=== PATIENT | female | born 1985 | race Caucasian/White ===

== ENCOUNTER → 2017-12-12 | Outpatient (CLI) | payer OTHER ==
[2017-12-12 12:09] LABS: T4, Free (Free Thyroxine) 1.01 ng/dL (0.78-2.19)
--- NOTE | 2017-12-12 14:56 | US ---
EXAMINATION TYPE: US pelvic complete DATE OF EXAM: 12/12/2017 COMPARISON: NONE CLINICAL HISTORY: N83.20 Ovarian cyst. Patient stated had US 6 to7 months ago at [facility] for ovarian cyst and does not recall which side pelvic pain occurred; ; hysterectomy 4 years ago ; patient denies pelvic pain today TECHNIQUE: Transabdominal (TA). Transabdominal sonographic images of the pelvis were acquired. Date of LMP: 4 years ago EXAM MEASUREMENTS: Uterus: surgically removed Endometrial Stripe: surgically removed Right Ovary: 3.8 x 2.9 x 2.2 cm Left Ovary: not seen after multiple views Patient deferred TV US to assess for left ovary. 1. Right Ovary: multiple follicles with largest seen as involuting complex cyst with peripheral ring of color flow = 1.9 x 2.0 x 1.7cm 2. Left Ovary: not seen Spectral, color and waveform doppler imaging shows good arterial and venous flow within right ovary ; there is no evidence for ovarian torsion. 3. Bilateral Adnexa: wnl 4. Posterior cul-de-sac: wnl IMPRESSION: 1. Involuting cyst likely on the right ovary. Additional follicles are present. 2. Left ovary not visualized. 3. Follow-up exam in 6 weeks is recommended.
== END | disposition home or self-care (01) ==
LOC: RADUSWWP 10:46
PROVIDERS: ATTEND Obstetrics & Gynecology
DX: N83.209 Unspecified ovarian cyst, unspecified side (principal); R53.83 Other fatigue
CPT/HCPCS: 36415; 76856; 83001; 83002; 84144; 84146; 84439; 84443

== ENCOUNTER 2021-03-19 13:53 | Emergency (ER) | payer OTHER ==
[2021-03-19] MEDS ORDERED: SODIUM CHLORIDE 0.9% 1,000 ML IV STA (14:46)
[2021-03-19] MEDS ORDERED: ACETAMINOPHEN TAB 500 MG TAB PO STA (14:47)
[2021-03-19] MEDS ORDERED: CASIRIVIMAB/IMDEVIMAB (EUA) 1,200 MG in SODIUM CHLORIDE 0.9% 100 ML IVPB ONE (15:00)
[2021-03-19] MEDS ORDERED: SODIUM CHLORIDE 0.9% 50 ML IVPB ONE (15:00)
--- NOTE | 2021-03-19 15:29 | ED ---
General Adult HPI - General Chief complaint: Upper Respiratory Infection Stated complaint: weakness Time Seen by Provider: 03/19/21 14:27 Source: patient Mode of arrival: ambulatory Limitations: no limitations - History of Present Illness Initial comments: 35-year-old female presenting to the emergency department with a chief complaint of a fever and weakness. Patient reports about 6 days ago she began to feel generalized fatigue and weakness. 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 Patient reports she's had fevers and chills but not taking antipyretics. Denies any nausea, vomiting, diarrhea or abdominal pain and chest pain and shortness of breath. Denies any cough or URI-like symptoms. Denies loss of taste or smell. Nonvaccinated for covert. - Related Data Home Medications Medication Instructions Recorded Confirmed Ibuprofen [Motrin] 200 mg PO Q6HR PRN 03/09/15 03/15/15 Previous Rx's Medication Instructions Recorded Acetaminophen-Codeine 300-30mg 1 tab PO Q4H PRN #30 tablet 03/16/15 [Tylenol #3] Simethicone [Gas-X] 125 mg PO TID PRN #30 capsule 03/16/15 Allergies Allergy/AdvReac Type Severity Reaction Status Date / Time No Known Allergies Allergy Verified 03/19/21 13:56 Review of Systems ROS Statement: Those systems with pertinent positive or pertinent negative responses have been documented in the HPI. ROS Other: All systems not noted in ROS Statement are negative. Past Medical History Past Medical History: No Reported History Additional Past Medical History / Comment(s): Obstetric history: She has had 4 previous vaginal deliveries. This is her fifth and she has had care with Dr Castro since 17 weeks. A+, abs neg, Rub nonimmune, Hep B neg, RPR NR. GBS neg. Declined quad. Normal anatomy US at 19 weeks. History of Any Multi-Drug Resistant Organisms: None Reported Past Surgical History: No Surgical Hx Reported Additional Past Surgical History / Comment(s): LEEP COLPOSCOPY Past Anesthesia/Blood Transfusion Reactions: No Reported Reaction Past Psychological History: No Psychological Hx Reported Smoking Status: Former smoker Past Alcohol Use History: None Reported Past Drug Use History: None Reported - Past Family History Mother Family Medical History: Cancer Additional Family Medical History / Comment(s): breast General Exam Limitations: no limitations General appearance: alert, in no apparent distress Head exam: Present: atraumatic, normocephalic, normal inspection Eye exam: Present: normal appearance, PERRL, EOMI Pupils: Present: normal accommodation ENT exam: Present: normal exam, normal oropharynx, mucous membranes dry, TM's normal bilaterally, normal external ear exam Neck exam: Present: normal inspection, full ROM. Absent: tenderness, lymphadenopathy Respiratory exam: Present: normal lung sounds bilaterally. Absent: respiratory distress Cardiovascular Exam: Present: regular rate, normal rhythm, normal heart sounds. Absent: systolic murmur, diastolic murmur, rubs GI/Abdominal exam: Present: soft. Absent: distended, tenderness, guarding, rebound Extremities exam: Present: normal inspection, full ROM, normal capillary refill. Absent: tenderness, pedal edema, joint swelling Back exam: Present: normal inspection, full ROM. Absent: tenderness Neurological exam: Present: alert, oriented X3 Psychiatric exam: Present: normal affect, normal mood Skin exam: Present: warm, dry, intact, normal color Course Vital Signs 03/19/21 13:56 Temperature 100.1 F H Pulse Rate 80 Respiratory 20 Rate Blood Pressure 96/60 O2 Sat by Pulse 97 Oximetry Medical Decision Making - Medical Decision Making 35-year-old female presenting to the emergency department with a chief complaint of a fever and weakness. On physical examination, patient is well-appearing. Lungs are clear to auscultation. She does have mild dry mucous members. Patient will be given 1 L IV bolus fluids. No chest pain or shortness of breath. Borderline fever. She was given Tylenol. Patient will be given a monoclonal antibody. Patient was observed in the emergency department. covid protocol as discussed. She will be discharged case discussed with physician. - Lab Data Lab Results 03/19/21 Range/Units 13:59 Coronavirus (PCR) Detected A (Not Detectd) Disposition Clinical Impression: COVID Disposition: HOME SELF-CARE Condition: Stable Instructions (If sedation given, give patient instructions): Coronavirus Disease 2019 (COVID-19) Additional Instructions: Please return to the Emergency Department if symptoms worsen or any other concerns. Is patient prescribed a controlled substance at d/c from ED?: No Referrals: Shelton Chung MD [Primary Care Provider] - 1-2 days Time of Disposition: 15:32
[2021-03-19 15:32] VITALS: RESP 18
[2021-03-19] MEDS ORDERED: KETOROLAC 15 MG/ML 1 ML VIAL IVP STA (16:19)
[2021-03-19 17:14] VITALS: BP 98/59; PULSE 66; TEMP 97.8
== END 2021-03-19 17:12 | disposition home or self-care (01) ==
LOC: EC 13:53
DX: U07.1 COVID-19 (principal); Z79.1 Long term (current) use of non-steroidal anti-inflammatories (NSAID); Z87.891 Personal history of nicotine dependence
CPT/HCPCS: 87635; 96365; 96375; 96361; 99285; J1885; Q0243

== ENCOUNTER → 2024-01-24 | Outpatient (CLI) | payer OTHER ==
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
== END | disposition home or self-care (01) ==
LOC: RADMRIMAIN 11:39
PROVIDERS: ATTEND Family Medicine
DX: M75.91 Shoulder lesion, unspecified, right shoulder (principal); M67.813 Other specified disorders of tendon, right shoulder; M19.011 Primary osteoarthritis, right shoulder

== ENCOUNTER → 2024-03-02 | Outpatient (CLI) | payer OTHER ==
--- NOTE | 2024-03-02 09:12 | MR ---
EXAMINATION TYPE: MR thoracic spine wo con DATE OF EXAM: 03/02/2024 COMPARISON: X-ray 01/02/2024 HISTORY: Back pain Standard multiplanar, multisequence MRI departmental protocol Multiplanar, multisequence images of the thoracic spine were acquired FINDINGS: There is mild loss of disc signal T7-T8 degenerative disc disease. Remaining levels demonstrate maint enance of disc signal space. There are no compression deformities or evidence of marrow edema. Neural foramina patent all levels. No disc herniation or canal stenosis. No abnormal signal within the visualized spinal cord. Mild heterogeneity of the thyroid could be associated with thyroiditis. Aorta of normal caliber. No a bnormal signal in the paraspinal soft tissues. Mild thickening of the left adrenal gland too small to characterize, but likely on the basis of benig n adenoma or hyperplasia. IMPRESSION: Mild degenerative disc disease T7-T8 with no disc herniation or canal stenosis.
== END | disposition home or self-care (01) ==
LOC: RADMRIMAIN 07:03
PROVIDERS: ATTEND Orthopaedic Surgery
DX: M51.34 Other intervertebral disc degeneration, thoracic region (principal)
CPT/HCPCS: 72146

== ENCOUNTER → 2024-04-06 | Outpatient (CLI) | payer OTHER ==
[2024-04-06 13:24] VITALS: BP 113/74; PULSE 63; RESP 16; TEMP 97.1
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
== END | disposition home or self-care (01) ==
LOC: PNWHC3 12:41
PROVIDERS: ATTEND Specialist
DX: M54.6 Pain in thoracic spine
CPT/HCPCS: 99211

== ENCOUNTER 2024-04-21 12:54 | Day surgery (SDC) | payer OTHER ==
[2024-04-21 13:57] VITALS: TEMP 97.2
[2024-04-21] MEDS: LACTATED RINGERS 1,000 ML IV SCH (14:00)
[2024-04-21] MEDS: IV FLUID CONTINUATION 1,000 ML IV ONE (14:00)
[2024-04-21] MEDS ORDERED: MIDAZOLAM 2 MG/2 ML VIAL ONE (14:48)
[2024-04-21] MEDS ORDERED: fentaNYL (PF) 50 MCG/ML 2 ML AMP ONE (14:48)
[2024-04-21] MEDS ORDERED: ROPIVACAINE 5MG/ML 20ML VIAL ONE (14:48)
--- NOTE | 2024-04-21 15:01 | P.PCN ---
Date of Procedure: 04/21/24 Procedure(s) Performed: PREOPERATIVE DIAGNOSIS : 1- Thoracic spondylosis with Facet Arthropathy wit hout myelopathy . POSTOPERATIVE DIAGNOSIS: 1- Thoracic spondylosis with Facet Arthropathy without myelopathy . PROCEDURE: Diagnostic bilateral T7, T8 medial branch block under fluoroscopy guidance(fluoroscopy images available in the radiology Department ) ( To target the facet joint between Bilateral T7-8 ) ANESTHESIA: moderate sedation with intravenous Versed 3 mg and Fentanyl 100 mcg. ( sedations started at 14:48 , ended at 14:58 ) EBL: Minimal COMPLICATION: None PROCEDURE INDICATION: Chronic low back pain secondary to Facet arthropathy un responsive to conservative treatment. PROCEDURE DESCRIPTION: the patient was seen and identified in the preop holding area , risks and benefits and possible complications of the procedure and alte rnative were discussed with the patient, and the patient agreed to proceed with the procedure and signed the consent and vital signs monitored during the procedure and fluoroscopy was used to maximize the benefit and accuracy of the needle placement, and sedation was given to decrease patient anxiety, patient was taken to the procedure room and placed in prone position vital signs monitored in the back prepped with chlorhexidine X3 then under strict sterile technique using a right oblique fluoroscopy ,the junction of the transverse process and the superior articulating process of the right T7 ,T8 vertebra which corresponding to the fluoroscopy image of the eye of the Reji dog on the block side for the medial branches and subsequently , after local infiltration of skin and subcu tissuies with Ropivacaine 0.5 % , one mL at each level ,then 22-gauge Quincke-type needles , 2 needle was used , each one of them placed at the junction of the base of the transverse process and the superior articular process at the appropriate level, and the needle was advanced until the periosteum contacted, needle placement confirmed with AP oblique and lateral view and after appropriate needle placement confirmed, and after negative aspiration for heme and CSF and there was no paresthesia 1 mL of Ropivacaine 0.5% , then half mL injected at each level after negative aspiration the needle subsequently removed and the same procedure repeated for the left side at left side at T7, T8 levels. At the end of the procedure and the needles removed and a bandage applied after the skin was cleaned the cleaning solution patient taken to recovery room in stable condition and monitors in the recovery room for 20-30 minutes and discharged home in stable condition after discharge criteria met and patient will follow up with the pain clinic in 2-4 weeks
[2024-04-21] MEDS: IV FLUID CONTINUATION 500 ML IV ONE (15:07)
--- NOTE | 2024-04-21 15:14 | FL ---
EXAMINATION TYPE: FL guided pain mgmt statistic DATE OF EXAM: 04/21/2024 HISTORY: Fluoroscopy time Total dose area product (DAP) in uGy*m?, mGy*cm? (or similar): 0.60072 IMPRESSION: 1. Fluoroscopy time. [facility], , 04/21/2024 3:12 PM
[2024-04-21 15:26] VITALS: BP 100/59; PULSE 72; RESP 18
== END 2024-04-21 15:48 | disposition home or self-care (01) ==
LOC: ORPAIN 12:54
PROVIDERS: ATTEND Specialist
DX: M47.814 Spondylosis without myelopathy or radiculopathy, thoracic region (principal)
CPT/HCPCS: 99152

== ENCOUNTER → 2024-05-07 | Outpatient (CLI) | payer OTHER ==
[2024-05-07 13:35] VITALS: BP 99/65; PULSE 77; RESP 16
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
== END ==
LOC: PNWHC3 12:59
PROVIDERS: ATTEND Specialist
DX: M47.24 Other spondylosis with radiculopathy, thoracic region (principal); F17.200 Nicotine dependence, unspecified, uncomplicated
CPT/HCPCS: 99211

== ENCOUNTER 2024-05-14 08:59 | Day surgery (SDC) | payer OTHER ==
[2024-05-14] MEDS: IV FLUID CONTINUATION 1,000 ML IV ONE ×2 (09:18→09:56)
[2024-05-14] MEDS: LACTATED RINGERS 1,000 ML IV SCH (09:21)
[2024-05-14 09:23] VITALS: TEMP 98
[2024-05-14] MEDS ORDERED: ROPIVACAINE 5MG/ML 20ML VIAL ONE (09:36)
[2024-05-14] MEDS ORDERED: fentaNYL (PF) 50 MCG/ML 2 ML AMP ONE (09:36)
[2024-05-14] MEDS ORDERED: MIDAZOLAM 2 MG/2 ML VIAL ONE (09:36)
--- NOTE | 2024-05-14 10:01 | FL ---
EXAMINATION TYPE: FL guided pain mgmt statistic DATE OF EXAM: 05/14/2024 HISTORY: Fluoroscopy time Total dose area product (DAP) in uGy*m?, mGy*cm? (or similar): 0.40241 IMPRESSION: 1. Fluoroscopy time. [facility], , 05/14/2024 9:59 AM
--- NOTE | 2024-05-14 10:09 | P.PCN ---
Description of Procedure: T10-11. Preprocedure diagnosis. 1. Thoracic spondylosis with facet joint arthropathy without myelopathy. 2. Thoracic degenerative disc disease. Postprocedure diagnosis. 1. Thoracic spondylosis with facet joint arthropathy without myelopathy. Space 2. Thoracic degenerative disc disease. Procedure.Bilateral T6, T7 medial branch diagnostic block with local anesthetics, with fluoroscopic guidance (fluoroscopy images are available in the radiology department) (to Denervate the facet joint at the T7-8 levels) Anesthesia. Moderate sedation with intravenous Versed 2 mg and fentanyl 100 g and local infiltration with ropivacaine 0.5%. Continuous verbal communication was maintained with patient. EBL minimal. Procedure indication. The patient with back pain secondary to thoracic facet arthropathy .The patient was seen and identified in the preoperative area. Risks, Benefits, complications, including but not limited to risk of infection, bleeding, ALLERGIC reaction to the medications and no complete pain relief and alternatives were discussed with the patient, the patient admitted to proceed with the procedure and signed the consent. Procedure description/technique. Patient was taken to the OR and timeout was completed. The patient was placed in prone position on the procedure table. The thoracic area was prepped and draped in the usual sterile fashion. After injecting 5 ml of 1% Lidocaine subcutaneously 22-gauge spinal needle was advanced under fluoroscopic guidance. Needle was progressed with trajectory view which is AP view. The needle is placed parallel to and advanced within the fluoroscopy beam to the superior lateral edge of the transverse process until the needle tip contacts the periosteum. With this approach, the needle tip is posterior to the superior lateral edge of the transverse process over which the targeted medial branch nerve passes. The importance of keeping the needle in line with the superior lateral edge of the transverse process has to do with avoiding the lung that is anterior to the transverse process. On the right side to target T6 medial branch, the needle was placed in the superior lateral part of T7 transverse process, to target T7 medial branch, the needle was placed in the superior lateral border of T8 transverse process. At each point 0.5 mL of 0.5% ropivacaine was injected. This same procedure was repeated on the LEFT side to target medial branch of T6, T7 using 0.5 mL of 0.5% ropivacaine at each point At the end of the procedure the skin was cleansed and Band-Aids were applied. Disposition patient tolerated the procedure well. No complication. She was placed in supine position and transferred to the recovery area in stable conditi on for observation and was discharged home from recovery room after meeting discharge criteria. Discharge instructions given to the patient by the staff. The patient were examined prior to discharge the patient will schedule a follow- up in the clinic in 2-4 weeks.
[2024-05-14 10:29] VITALS: BP 101/62; PULSE 60; RESP 17
== END 2024-05-14 10:36 | disposition home or self-care (01) ==
LOC: ORPAIN 08:59
PROVIDERS: ATTEND Pain Medicine Interventional Pain Medicine
DX: M47.814 Spondylosis without myelopathy or radiculopathy, thoracic region (principal); M51.34 Other intervertebral disc degeneration, thoracic region
CPT/HCPCS: 99152

== ENCOUNTER → 2024-05-28 | Outpatient (CLI) | payer OTHER ==
[2024-05-28 12:53] VITALS: BP 99/56; PULSE 74; RESP 16
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
== END ==
LOC: PNWHC3 12:39
PROVIDERS: ATTEND Specialist
DX: M47.24 Other spondylosis with radiculopathy, thoracic region (principal); F17.200 Nicotine dependence, unspecified, uncomplicated
CPT/HCPCS: 99211

== ENCOUNTER → 2024-06-12 | Day surgery (SDC) | payer OTHER ==
[~2024-06-12] MED LIST: MIDAZOLAM 2 MG/2 ML VIAL ONE; ROPIVACAINE 5MG/ML 20ML VIAL ONE; fentaNYL (PF) 50 MCG/ML 2 ML AMP ONE; methylPREDNISolone ACETATE 40 MG/ML 1 ML VIAL ONE
[2024-06-12 11:54] VITALS: RESP 16; TEMP 98
[2024-06-12] MEDS: LACTATED RINGERS 1,000 ML IV SCH (11:54)
[2024-06-12] MEDS: IV FLUID CONTINUATION 1,000 ML IV ONE (12:46)
--- NOTE | 2024-06-12 12:46 | P.PCN ---
Date of Procedure: 06/12/24 Procedure(s) Performed: PREOPERATIVE DIAGNOSIS: 1-thoracic spondylosis with Facet Arthropathy without myelopathy. POSTOPERATIVE DIAGNOSIS: 1-thoracic spondylosis with Facet Arthropathy without myelopathy. PROCEDURES : Bilateral Radiofrequency thermocoagulation,T7, T8 medial branch, with fluoroscopic guidance (fluoro images in the radiology department) ( to denervate the facet joint at bilateral T7-8 levels ). ANESTHESIA: Moderate sedation with intravenous versed 4 mg and fentaneyl 100 mcg . (Sedation started at 12:15, ended at 12:39 ) EBL: Minimal PROCEDURE INDICATION: The patient with mid back pain secondary to Thoracic facet arthropathy who had more than 50% relief of her pain with previous diagnostic Thoracic medial branch block with Ropivacaine. PROCEDURE DESCRIPTION / TECHNIQUE: The patient was seen and identified in the preoperative area. Risks, benefits, complications, including but not limited to risk of infection ,bleeding , allergic reactions to the medications and no complete pain releife , and alternatives were discussed with the patient, the patient agreed to proceed with the procedure and signed the consent. IV was started. Vital signs remained stable throughout the procedure. Patient was taken to the OR and time out was completed. The patient was placed in the prone position on the procedure table. The Thoracic area was prepped and draped in the usual sterile fashion. . Vital signs were closely monitored during the procedure .IV sedation was used during the procedure to decrease patients anxiety. Using AP and then oblique fluoroscopy, the ``eye of the Reji dog corresponding to the connection between the superior and transverse articular processes of right T7 ,T8 were identified, marked, and localized with 1% lidocaine. Subsequently, a 20 [id number] radiofrequency cannula with a 10-mm active tip was advanced guided by fluoroscopy to each of the``eyes of the Reji dog at right T7, T8. Each site then underwent sensory testing at 50 Hz and 0 to 1 volt and motor testing at 2.5 Hz and 0 to 3 volt with local stimulation, but no radicular symptoms down the legs. Thereafter each sites underwent radiofrequency thermocoagulation at 80 degrees celsius for 90 seconds after injecting 0.5 ml of PF Ropivacaine 1ml, then after the thermocoagulation done , 1 ml of the block solution containing Depo-Medrol 20 mg and 3 ml of Ropivacaine 0.5% was injected at the right T7 ,T8 , levels after negative aspiration of CSF and blood and with no paresthesias. Cannulas were retracted while injecting lidocaine 1% until the needle is out. The same procedure was repeated at the level of Left T7 ,T8 levels. At the end of the procedure, the skin was cleansed and bandages were applied. COMPLICATIONS: No acute complications. DISPOSITION / PLANS: The patient was placed in a supine position and transferred to the recovery area in a stable condition for observation and was discharged from the recovery room after meeting discharge criteria. Home discharge instructions given to the patient by the staff. The patient was reexamined prior to discharge. The patient will schedule a follow up in the clinic in 2-4 weeks.
[2024-06-12 13:07] VITALS: BP 98/66; PULSE 65
--- NOTE | 2024-06-12 13:12 | FL ---
EXAMINATION TYPE: FL guided pain mgmt statistic DATE OF EXAM: 06/12/2024 12:45 PM COMPARISON: Pre Operative Images if available both CT/MRI or plain film CLINICAL INDICATION: Female, 38 years old with history of RF FREQ THORACIC; TECHNIQUE: FL guided pain mgmt statistic, multiple fluoroscopic images provided for procedure. Total fluoroscopy time: 28.0 seconds Total submitted images to PACS: 8 DAP: [id number] mGym2 Gycm2 uGym2 cGycm2 or equivalent. FINDINGS: IMPRESSION: 1. No evidence for intraoperative complication. 2. Please see the operative/procedural note for further details. [facility], , 06/12/2024 1:09 PM
== END ==
LOC: ORPAIN 10:27
PROVIDERS: ATTEND Specialist
DX: M47.814 Spondylosis without myelopathy or radiculopathy, thoracic region (principal)
CPT/HCPCS: 99152; 99153

== ENCOUNTER → 2024-07-15 | Outpatient (CLI) | payer OTHER ==
[2024-07-15 13:02] VITALS: BP 115/77; PULSE 75; RESP 19; TEMP 98
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
== END ==
LOC: PNWHC3 12:45
PROVIDERS: ATTEND Specialist
DX: M54.15 Radiculopathy, thoracolumbar region (principal); G89.29 Other chronic pain; F17.200 Nicotine dependence, unspecified, uncomplicated
CPT/HCPCS: 99211

== ENCOUNTER → 2024-07-15 | Outpatient (CLI) | payer OTHER ==
--- NOTE | 2024-07-15 15:10 | XR ---
EXAMINATION TYPE: XR lumbar spine 3V DATE OF EXAM: 07/15/2024 2:00 PM COMPARISON: None CLINICAL INDICATION: Female, 38 years old with history of M54.16 RADICULOPATHY, LUMBAR REGION, , FINDINGS: Leftward truncal shift. Facet arthropathy lower lumbar spine. Vertebral body heights are preserved as are disc interspaces and alignment is maintained. IMPRESSION: No vertebral compression collapse or malalignment. Slight leftward truncal shift which may be positio nal or due to muscle spasm. [facility], Workstation: [facility], 07/15/2024 3:08 PM
== END | disposition home or self-care (01) ==
LOC: LABWHC1 13:35
PROVIDERS: ATTEND Specialist
DX: M54.16 Radiculopathy, lumbar region (principal)
CPT/HCPCS: 72100

== ENCOUNTER → 2024-07-27 | Outpatient (CLI) | payer OTHER ==
--- NOTE | 2024-07-27 21:48 | MR ---
INDICATION: Patient age:Female; 38 years old; Reason for study: M54.16; [facility]. COMPARISONS: Lumbar spine radiograph 07/27/2024, MR thoracic spine 03/02/2024. TECHNIQUE: Multi planar, multi sequence imaging was performed utilizing: T1-weighted, T2-weighted, a nd turbo inversion recovery imaging of the lumbar spine. The patient was not given contrast. FINDINGS: The lumbar vertebral bodies do have preserved heights and alignment. No significant disc desiccation is present. The conus medullaris and the distal spinal cord do appear unremarkable with regards to their signal intensity and morphology. L1-L2: No significant disc pathology is identified. The spinal canal and neural foramen are patent. L2-L3: No significant disc pathology is identified. The spinal canal and neural foramen are patent. L3-L4: No significant disc pathology is identified. The spinal canal and neural foramen are patent. L4-L5: No significant disc pathology is identified. The spinal canal and neural foramen are patent L5-S1: No significant disc pathology is identified. The spinal canal and neural foramen are patent. Bilateral facet arthropathy with right-sided facet joint increased STIR signal. There is associated 7 mm synovial cyst posteriorly along the facet joint. Other significant findings: None. IMPRESSION: 1. No definitive evidence for disc herniation or significant spinal canal stenosis. 2. L5-S1 right facet joint arthropathy with surrounding edema and subcentimeter synovial cyst. [facility], , 07/27/2024 9:46 PM
== END | disposition home or self-care (01) ==
LOC: RADMRIMAIN 20:45
PROVIDERS: ATTEND Specialist
DX: M47.27 Other spondylosis with radiculopathy, lumbosacral region (principal); M71.38 Other bursal cyst, other site; R60.9 Edema, unspecified
CPT/HCPCS: 72148

== ENCOUNTER → 2024-08-03 | Outpatient (CLI) | payer OTHER ==
[2024-08-03 10:21] VITALS: PULSE 71; RESP 16; TEMP 97.9
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
== END ==
LOC: PNWHC3 07:54
PROVIDERS: ATTEND Specialist
DX: M54.14 Radiculopathy, thoracic region (principal); M47.817 Spondylosis without myelopathy or radiculopathy, lumbosacral region; F17.210 Nicotine dependence, cigarettes, uncomplicated
CPT/HCPCS: 99212

== ENCOUNTER → 2024-09-28 | Outpatient (CLI) | payer OTHER ==
[2024-09-28 08:54] VITALS: BP 104/66; PULSE 74; RESP 15; TEMP 98.3
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
== END ==
LOC: PNWHC3 08:03
PROVIDERS: ATTEND Specialist
DX: M47.817 Spondylosis without myelopathy or radiculopathy, lumbosacral region (principal); M54.14 Radiculopathy, thoracic region; G89.4 Chronic pain syndrome; F17.210 Nicotine dependence, cigarettes, uncomplicated
CPT/HCPCS: 99212

== ENCOUNTER → 2024-11-23 | Outpatient (CLI) | payer OTHER ==
[2024-11-23 08:22] VITALS: BP 110/72; PULSE 72; RESP 16; TEMP 97.3
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
== END ==
LOC: PNWHC3 07:58
PROVIDERS: ATTEND Specialist
DX: M47.817 Spondylosis without myelopathy or radiculopathy, lumbosacral region (principal); M47.24 Other spondylosis with radiculopathy, thoracic region; F17.200 Nicotine dependence, unspecified, uncomplicated
CPT/HCPCS: 80307; 99212

== ENCOUNTER → 2024-12-15 | Day surgery (SDC) | payer OTHER ==
[2024-12-14 11:00] VITALS: BMI 24.7
[~2024-12-15] MED LIST changes: +ROPIVACAINE 5 MG/ML 30 ML VIAL ONE; -ROPIVACAINE 5MG/ML 20ML VIAL ONE; -methylPREDNISolone ACETATE 40 MG/ML 1 ML VIAL ONE
[2024-12-15] MEDS: IV FLUID CONTINUATION 1,000 ML IV ONE ×3 (07:15→08:23)
[2024-12-15] MEDS: LACTATED RINGERS 1,000 ML IV SCH (07:16)
[2024-12-15 07:19] VITALS: TEMP 97
--- NOTE | 2024-12-15 08:03 | P.PCN ---
Description of Procedure: Preprocedure diagnosis. 1. Lumbar spondylosis with facet joint arthropathy without myelopathy. 2. Lumbar degenerative disc disease. Postprocedure diagnosis. As above. Procedure done. Bilateral diagnostic block with local anesthetics at L3, L4, L5 medial branch to target the facet joint L4- 5 and L5-S1 with fluoroscopic guidan ce (fluoroscopy images are available in the radiology department) . Anesthesia. Moderate sedation with intravenous Versed 3 mg and fentanyl 150 microgram and local infiltration with local anesthetics. In OR, continuous pulse ox, EKG, blood pressure and verbal communication was maintained. Sedation time-start 07 end 07. Blood loss. Minimal. Indication. The patient has low back pain secondary to lumbar facet joint arthropathy. Discussed the procedure and alternative and complications which includes infection, bleeding, nerve damage, paralysis ,aggravation of pain. Patient understands and all questions were answered. Patient iunderstands that if any pain relief occurs it will last for a few hours to a few days maximum. Procedure description. After getting consent patient was taken in the OR in prone position. Back prepped with chlorhexidine and draped in sterile fashion. After injecting 5 mL of plain 1% lidocaine subcutaneously, a 22-gauge spinal needle was introduced under tunnel vision of the fluoroscope at the junction of the superior articular process with RIGHT ala of the sacrum. With slight oblique fluoroscope, after injecting 5 mL of plain 1% lidocaine subcutaneously, a 22-gauge spinal needle was introduced under tunnel vision of the fluoroscope at the junction of the superior articular process with RIGHT L5 transverse process, junction of the superior articular process with the RIGHT L4 transverse process. Negative CSF, negative blood, negative paresthesia. After needle position confirmation by AP and crosstable lateral view, after negative aspirati on, half milliliters of solution were injected at each point. Total 1-1/2 mL of solution was injected on the right side which consists of 0.5% ropivacaine. In exactly same way, LEFT sided injections were done at the following 3 points. Junction of the superior articular process with left ala of the sacrum, junction of the superior articular process with the left L5 transverse process, junction of the superior articular process with left L4 transverse process using 0.5 mL of solution at each point. Total 1-1/2 mL of solution was injected on the left side which consists of 0.5% ropivacaine . Spinal needles were taken out and bandages were applied. Disposition. Patient tolerated the procedure well. No complication. Discharged home in stable condition
--- NOTE | 2024-12-15 08:08 | FL ---
Fluoroscopy INDICATION: Pain FINDINGS: Fluoroscopy time: 62.7 seconds. Total dose area product (DAP) in uGy*m?, mGy*cm? (or similar): 0.30817 Images obtained: 5. Images document [place] directed towards the lumbar spine IMPRESSION: 1. Documentation of fluoroscopy. [facility], , 12/15/2024 8:06 AM
[2024-12-15 08:18] VITALS: BP 112/74; PULSE 63; RESP 17
== END ==
LOC: ORPAIN 06:41
PROVIDERS: ATTEND Pain Medicine Interventional Pain Medicine
DX: M47.816 Spondylosis without myelopathy or radiculopathy, lumbar region (principal)
CPT/HCPCS: 64493; 64494; J2250; J3010; J2795; 99152

== ENCOUNTER → 2024-12-24 | Outpatient (CLI) | payer OTHER ==
[2024-12-24 08:11] VITALS: BP 97/62; PULSE 66; RESP 16; TEMP 97.2
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
== END ==
LOC: PNWHC3 07:54
PROVIDERS: ATTEND Specialist
DX: M47.24 Other spondylosis with radiculopathy, thoracic region (principal); M47.27 Other spondylosis with radiculopathy, lumbosacral region; F17.200 Nicotine dependence, unspecified, uncomplicated
CPT/HCPCS: 99211